=== PATIENT | male | born 1955 | race Caucasian/White ===

== ENCOUNTER → 2019-06-03 | Outpatient (CLI) | payer MEDICARE ==
[~2019-06-03] MED LIST: ASPI-1012 PO; ATOR10TA69 PO; CARV12.511 PO; FURO40TA5 PO; LORA10TA7 PO; NOVOLIN 70-30 SQ; SPIR25TA6 PO; TAMS-1 PO
== END | disposition home or self-care (01) ==
LOC: SHCH 13:47
PROVIDERS: ATTEND Internal Medicine Cardiovascular Disease
DX: I51.7 Cardiomegaly (principal); Z95.2 Presence of prosthetic heart valve
CPT/HCPCS: 93306